=== PATIENT | male | born 1990 | race Caucasian/White ===

== ENCOUNTER 2017-08-06 18:42 | Emergency (ER) | payer OTHER ==
--- NOTE | 2017-08-06 18:53 | CPEKG ---
Heart Rate: 138 RR Interval: 435 P-R Interval: 152 QRSD Interval: 100 QT Interval: 288 QTC Interval: 437 P Ellerbe: 77 QRS Ellerbe: 90 T Wave Ellerbe: -86 EKG Severity - ABNORMAL ECG - EKG Impression: SINUS TACHYCARDIA vs atrial tachycardia EKG Impression: CONSIDER RVH W/ SECONDARY REPOL ABNORMALITY EKG Impression: NONSPECIFIC T ABNORMALITIES, LATERAL LEADS Electronically Signed By: Arthur Tang 08-Aug-2017 08:52:52
--- NOTE | 2017-08-06 18:59 | EDPHY ---
H & P Time Seen by Provider: 08/06/17 18:50 HPI/ROS: CHIEF COMPLAINT: Rapid heartbeat HISTORY OF PRESENT ILLNESS: Patient is a 27-year-old male who presents to the emergency department with rapid heart beat. 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 He was noted to have a rapid heartbeat. He was sent to the emergency department for further evaluation. Patient has no chest pain or shortness of breath at this time. No palpitations. No leg pain or swelling. No recent drug use. The patient denies caffeine or [id number] medication. Patient denies any other complaints. 1 year ago, the patient started workout routine. About 2 months into his workout routine he noticed intermittent palpitations and chest tightness. He saw his primary care physician and was diagnosed with muscle spasm. The patient has had intermittent palpitations and chest pain since that time. However, as noted above no chest pain or palpitations recently. Patient states he was diagnosed with a thyroid nodule 1 year ago. This was ultrasounded and he was told it was benign. REVIEW OF SYSTEMS: My complete review of systems is negative except as mentioned in the HPI. Past Medical/Surgical History: Includes thyroid nodule, left inguinal hernia Social history: Patient occasionally smokes THC. No recent drug use. He does not drink alcohol. The family history: The patient's grandfather of a heart attack at the age of 45. Smoking Status: Never smoked Physical Exam: 37.1, 155/90, 115, 16, 96% on room air GENERAL: Well-appearing, in no acute distress, alert. HEENT: Eyes normal to inspection, normal pharynx, no signs of dehydration. NECK: No thyromegaly, no lymphadenopathy, supple. No palpable mass. RESPIRATORY: Clear to auscultation bilaterally, no rales, rhonchi or wheezing. CVS: Regular tachycardia, no rubs, murmurs, or gallops. ABDOMEN: Soft, nontender, nondistended, no organomegaly. BACK: Normal to inspection, no CVA tenderness. SKIN: Normal color, no rash, warm, dry. No pallor. EXTREMITIES: No pedal edema, no calf tenderness, no Homans sign or cords, no joint swelling. NEURO/PSYCH: Alert and oriented x3, normal mood and affect, normal motor sensory exam. Constitutional: Initial Vital Signs Temperature (C) 37.1 C 08/06/17 18:45 Heart Rate 115 H 08/06/17 18:45 Respiratory Rate 16 08/06/17 18:45 Blood Pressure 155/90 H 08/06/17 18:45 O2 Sat (%) 96 08/06/17 18:45 O2 Delivery Mode Room Air Allergies/Adverse Reactions: No Known Allergies Allergy (Unverified 08/06/17 18:44) Home Medications: Medication Instructions Recorded Mamie 08/06/17 Medical Decision Making ED Course/Re-evaluation: In the emergency department I discussed possible etiologies with the patient. I answered all his questions. IV was placed. Laboratory studies, EKG and chest x-ray were ordered. EKG shows sinus tachycardia at 138,normal axis, normal intervals. Minimal ST depression V4 through V 6. Differential Diagnosis: My differential includes but is not limited to sinus tachycardia, dehydration, electrolyte abnormality, sugar abnormality, thyroid disease, drug use, dysrhythmia Departure - Departure Disposition: Home, Routine, Self-Care Clinical Impression: Sinus tachycardia Condition: Good Instructions: Atrial Tachycardia (ED) Referrals: [facility]OW[facility] [Other] - 2-3 days without fail Toby Ramos MD [Medical Doctor] - As per Instructions
[2017-08-06] MEDS ORDERED: ASPIRIN 81 MG CHEWABLE TAB PO ONE (19:10)
[2017-08-06] MEDS ORDERED: NS 1,000 ML IV ONE (19:11)
[2017-08-06 19:15] LABS: PLATELET COUNT 367 10^3/uL (150-400)
[2017-08-06 19:25] LABS: INR 0.95 (0.83-1.16); PROTIME(PATIENT) 12.9 SEC (12.0-15.0)
[2017-08-06 20:27] VITALS: BP 120/84
== END 2017-08-06 20:26 | disposition home or self-care (01) ==
DX: R00.0 Tachycardia, unspecified (principal)